=== PATIENT | female | born 1965 | race Caucasian/White ===

== ENCOUNTER 2016-10-30 15:22 | Emergency (ER) | payer OTHER ==
--- NOTE | ~2016-10-30 | CT71 ---
[facility] A Service of [facility] RADIOLOGY TEXT RESULTS PATIENT: MARYCARMEN PRESCOTT LOCATION: SED : 61 UNIT #: [id number] AGE: [address]: Gildardo Rodriguez MD SEX: F ORDER DR: [id number] [address] [id number] [id number] MR#: [id number] Acc #: [id number] NAME: MARYCARMEN PRESCOTT : 1965 SEX: F STUDY DATE/TIME: 10/30/2016 16:12 UNIT: SED ROOM: STUDY DESCRIPTION: CT Head Wo Contrast Attending Physician: Gildardo Rodriguez M.D. Ordering Physician: Gildardo Rodriguez M.D. Primary Care Physician: Primary Care Physician No MEDICAL IMAGING REPORT This report is preliminary unless electronic signature is present. EXAM Head CT without contrast 10/30/2016 HISTORY Dizziness and headache, eyes burning, leg and neck pain for 1 week. Hypertension. No known injury. TECHNIQUE This CT examination was performed with one or more of the following radiation dose reduction techniques: automatic exposure control, adjustment of mA and/or kV according to patient size, and iterative reconstruction. FINDINGS Multiple axial images were obtained from the skull base to vertex without intravenous contrast administration. The ventricles are normal in size, shape and position. There is no midline shift. There is no mass or mass effect, hemorrhage or acute infarct. Air-fluid levels are seen in the right frontal, ethmoid and sphenoid sinuses characteristic of sinusitis. IMPRESSION Sinusitis. No acute intracranial abnormality. Dictated by... Diallo Rhodes M.D. THIS IS AN ELECTRONICALLY VERIFIED REPORT Diallo Rhodes M.D. at 10/31/2016 10:45 AM ANABELLA/wesyl [facility] A Service of [facility] RADIOLOGY TEXT RESULTS PATIENT: MARYCARMEN PRESCOTT LOCATION: SED : 61 UNIT #: [id number] AGE: [address]: Gildardo Rodriguez MD SEX: F ORDER DR: TD: 10/31/2016 06:28 JOB #: [id number] MEDICAL IMAGING REPORT Page 1 of 1
--- NOTE | ~2016-10-30 | EKG ---
PATIENT: MARYCARMEN PRESCOTT UNIT #: [id number] Ventricular Rate: 71 BPM Atrial Rate: 71 BPM P-R Interval: 128 ms QRS Duration: 86 ms Q-T Interval: 418 ms QTC Calculation(Bezet): 454 ms P [place]: 21 degrees Calculated R [place]: 49 degrees Calculated T [place]: 24 degrees Diagnosis Line: Normal sinus rhythm with sinus arrhythmia Diagnosis Line: Normal ECG Diagnosis Line: No previous ECGs available Diagnosis Line: Confirmed by ALYCE MARINELLI MD ([id number]) on 11/02/2016 Diagnosis Line: 9:37:21 AM INTERPRETING MD: YVES LOZADA
[~2016-10-30 15:22] MED LIST: HCTZ PO; LISINOPRIL; PHENERGAN PO; PROVERA10 MG
[2016-10-30 15:53] LABS: BASOPHIL% 0.6 % (0-2.5); EOSINOPHIL# 0.1 X10e3 (0-0.7); EOSINOPHIL% 0.8 % (0.0-7.0); HEMATOCRIT 39.9 % (35.0-45.0); HEMOGLOBIN 13.1 gm/dL (12.0-16.0); LYMPHOCYTE# 2.3 X10e3 (1.0-3.5); LYMPHOCYTE% 34.3 % (17.0-45.0); MEAN CELL VOLUME 74.3 FL (83-96); MEAN CORPUSCULAR HEMOGLOBIN 24.4 PG (28-34); MEAN CORPUSCULAR HGB CONC 32.8 g/dL (30-36); MONOCYTE# 0.8 X10e3 (0-1.0); MONOCYTE% 12.5 % (3.0-12.0); NEUTROPHIL# 3.4 X10e3 (1.5-7.1); NEUTROPHIL% 51.8 % (40-75); PLATELET COUNT 232 X10e3 (140-420); RED BLOOD COUNT 5.37 X10e (3.90-5.30); RED CELL DISTRIBUTION WIDTH 16.5 % (11.0-15.5); WHITE BLOOD COUNT 6.6 X10e3 (4.0-10.5)
[2016-10-30 15:57] LABS: DIFF IND NO
[2016-10-30 16:08] LABS: POC - CKMB 5.4 ng/mL (0.0-7.9); POC - TROPONIN <0.05 ng/mL (<=0.05)
[2016-10-30 16:09] LABS: BUN/CREATININE RATIO 28.33; CALCIUM SERUM 8.6 mg/dL (8.4-10.2); CREATININE SERUM 0.6 mg/dL (0.6-1.4); GLOM FILT RATE Estimated 104.8 mL/min (>60); MAGNESIUM 2.2 mg/dL (1.6-3.0); POTASSIUM 3.7 mmol/L (3.5-5.1)
== END 2016-10-30 17:03 | disposition home or self-care (01) ==
LOC: SED 15:22
PROVIDERS: Emergency Medicine
DX: J32.9 Chronic sinusitis, unspecified (principal); I10 Essential (primary) hypertension; K21.9 Gastro-esophageal reflux disease without esophagitis
CPT/HCPCS: 36415; 70450; 80048; 82553; 83735; 84443; 84484; 85025; 93005; 96374; 99284; J1885